=== PATIENT | female | born 1950 | race Caucasian/White ===

== ENCOUNTER 2017-07-12 12:04 | Observation (INO) | payer OTHER ==
[~2017-07-12] VITALS: Ht 147.3 cm; Wt 117.5 kg
[2017-07-12 13:44] LABS: BASOPHIL (%) 0.7 % (0-1); BASOPHIL COUNT 0.1 K/uL (0-0.1); EOSINOPHIL (%) 1.9 % (0-5); EOSINOPHIL COUNT 0.2 K/uL (0-0.3); HEMATOCRIT 36.5 % (36.0-46.0); HEMOGLOBIN 12.1 G/DL (11.9-15.5); IMMATURE GRANULOCYTE (%) 0.2 % (0.0-0.7); LYMPHOCYTE (%) 21.8 % (15-42); LYMPHOCYTE COUNT 1.9 K/uL (1.0-2.8); MCHC 33.2 G/DL (30.0-36.0); MCV 90.6 FL (83-99); MONOCYTE (%) 6.1 % (3-12); MONOCYTE COUNT 0.5 K/uL (0-0.8); NEUTROPHIL (%) 69.3 % (45-76); NEUTROPHIL COUNT 6.1 K/uL (1.8-6.4); PLATELET COUNT 249 K/uL (156-360); RBC DIS.WIDTH-CV 13.4 % (11.8-14.6); RBC DIS.WIDTH-SD 44.4 % (39-53); RED BLOOD COUNT 4.03 M/uL (3.80-5.20); WHITE BLOOD COUNT 8.8 K/uL (4.1-10.2)
[2017-07-12 13:57] LABS: CHLORIDE 100 mEq/L (99-109); POTASSIUM 3.5 mEq/L (3.7-5.4); SODIUM 138 mEq/L (136-147)
[2017-07-12 13:59] LABS: GLUCOSE 117 mg/dL (70-99)
[2017-07-12 14:03] LABS: CREATININE 0.9 mg/dL (0.6-1.3); GFR ESTIMATE (CALCULATED) > 59 mL/min/
[2017-07-12 14:04] LABS: UREA NITROGEN (BUN) 16 mg/dL (9-23)
[2017-07-12 14:07] LABS: TROP-I INTERPRETATION NEGATIVE; TROPONIN-I < 0.01 ng/mL (0.0-0.30)
[2017-07-12] MEDS ORDERED: LO-DOSE ASPIRIN81 M2 PO (16:31)
[2017-07-12] MEDS ORDERED: TYLENOL EXTRA500 MG PO (16:34)
[2017-07-12] MEDS ORDERED: LOZOL2.5 MG PO (16:37)
[2017-07-12] MEDS ORDERED: TENORMIN50 MG PO (16:43)
[2017-07-12] MEDS ORDERED: ACEON8 MG PO (16:44)
[2017-07-12] MEDS ORDERED: SYNTHROID100 MCG PO (16:45)
[2017-07-12] MEDS ORDERED: CALTRATE 600 +1 EAC1 PO (16:47)
[2017-07-12] MEDS ORDERED: CENTRUM SILVER1 EAC4 PO (16:48)
[2017-07-12] MEDS ORDERED: PEPCID AC20 MG PO (16:49)
[2017-07-12 17:49] VITALS: BP 125/58
[2017-07-12 18:11] LABS: THYROTROPIN (TSH) 1.8 MIU/L (0.4-5.5)
[2017-07-12 19:06] VITALS: BP 106/53
[2017-07-12 22:04] LABS: TROP-I INTERPRETATION NEGATIVE; TROPONIN-I < 0.01 ng/mL (0.0-0.30)
[2017-07-13 00:01] VITALS: BP 135/65
[2017-07-13 04:15] VITALS: BP 140/65
[2017-07-13 06:27] LABS: TROP-I INTERPRETATION NEGATIVE; TROPONIN-I < 0.01 ng/mL (0.0-0.30)
[2017-07-13 06:52] LABS: CHLORIDE 99 MEQ/L (99-109); GFR ESTIMATE (CALCULATED) > 59 mL/min/; GLUCOSE 125 mg/dL (70-99); POTASSIUM 3.8 MEQ/L (3.7-5.4); SODIUM 139 MEQ/L (136-147); UREA NITROGEN (BUN) 18 mg/dL (9-23)
== END 2017-07-13 09:47 | disposition home or self-care (01) ==
LOC: EME 12:04 → EDOF 15:37 → ENRESERV 15:39 → 4SOUTH 17:34
PROVIDERS: Emergency Medicine; Internal Medicine
DX: R00.2 Palpitations (principal); E03.9 Hypothyroidism, unspecified; F41.0 Panic disorder [episodic paroxysmal anxiety]; I10 Essential (primary) hypertension; Z82.49 Family history of ischemic heart disease and other diseases of the circulatory system; Z82.5 Family history of asthma and other chronic lower respiratory diseases; Z82.3 Family history of stroke; Z79.82 Long term (current) use of aspirin
CPT/HCPCS: 71045; 80048; 84439; 84443; 84480 90; 84481; 84484; 85025; 93005; 99281; 99285; G0378